=== PATIENT | male | born 1945 | race Caucasian/White ===

== ENCOUNTER 2019-11-30 05:12 | Inpatient (IN) ==
[2019-11-30] MEDS ORDERED: SODIUM CHLORIDE 0.9% 1,000 ML IV STA (05:40)
[2019-11-30] MEDS ORDERED: PANTOPRAZOLE INJ 80 MG in SODIUM CHLORIDE 0.9% 100 ML IV ONE (05:40)
[2019-11-30] MEDS ORDERED: PANTOPRAZOLE 40 MG VIAL IV ONE (05:48)
[2019-11-30 05:59] LABS: Basophils % 0.3 % (0.0-0.8); Eosinophils # 0.2 10*3/uL (0.0-0.87); Eosinophils % 5.8 % (0.00-10.9); Hematocrit 27.4 VOL% (42.0-52.0); Hemoglobin 8.6 GM/DL (14.0-18.0); Immature Granulocytes % 0.8 %; Immature Granulocytes Absolute 0.03 #; Lymphocytes # 0.7 10*3/uL (1.4-4.0); Lymphocytes % 18.1 % (21.2-54.2); Mean Corpuscular HGB Conc 31.4 GM/DL (32-36); Mean Corpuscular Volume 104.6 FL (87-102); Mean Platelet Volume 10.7 FL (9.6-12.0); Monocytes % 7.9 % (1.7-12.7); Neutrophils % 67.1 % (38.7-73.9); Red Blood Count 2.62 MC/CUMM (3.8-5.5); Red Cell Distribution Width 16.3 % (9.3-17.3); White Blood Count 3.7 T/CUMM (4-12)
[2019-11-30 06:02] LABS: Platelet Count 94 T/CUMM (130-400)
[2019-11-30 06:20] LABS: Alanine Aminotransferase 22 U/L (16-61); Albumin 1.7 G/DL (3.4-5.0); Alkaline Phosphatase 56 U/L (45-117); Aspartate Amino Transferase 14 U/L (0-37); Bilirubin,Total < 0.39 MG/DL (0.2-1.0); Blood Urea Nitrogen 32 MG/DL (7-18); Calcium 7.7 MG/DL (8.5-10.1); Estimated Glom Filtration Rate 51 ML/MIN; Glucose 114 MG/DL (74-106); Total Protein 5.1 G/DL (6.4-8.3)
[2019-11-30] MEDS ORDERED: ONDANSETRON 4 MG/2 ML VIAL IV PRN (06:20)
[2019-11-30] MEDS ORDERED: GLUCAGON 1 MG VIAL IM PRN (06:20)
[2019-11-30] MEDS ORDERED: DEXTROSE 50% 25 GM/50 ML VIAL IV PRN (06:20)
[2019-11-30] MEDS ORDERED: SODIUM CHLORIDE 0.9% 1,000 ML IV PRN (06:23)
[2019-11-30 06:32] LABS: Atypical Lymphocytes Few; Band Neutrophils 15 % (0-10); Eosinophils 4 % (0-10); Lymphocytes 15 % (20-55); Metamyelocytes 1 %; Platelet Estimate Decreased; Polychromasia Few; Reactive Lymphocytes Few; Segmented Neutrophils 60 % (50-85)
[2019-11-30 06:33] LABS: Hypochromasia 1+; Ovalocytes 1+; Total Cells Counted 100
[2019-11-30] MEDS ORDERED: MAGNESIUM SULF RIDER 4 GM in PREMIX 1 EACH IV PRN (08:48)
[2019-11-30] MEDS ORDERED: POTASSIUM CHLORIDE RIDER 10 MEQ in PREMIX 1 EACH IV PRN (08:48)
[2019-11-30] MEDS ORDERED: PANTOPRAZOLE 40 MG VIAL IV SCH (09:00)
[2019-11-30] MEDS ORDERED: metroNIDAZOLE 500 MG TABLET PO SCH (09:00)
[2019-11-30] MEDS ORDERED: metroNIDAZOLE 500 MG/100 ML PREMIX IV ONE (09:28)
[2019-11-30] MEDS: metroNIDAZOLE INJ 500 MG in PREMIX 1 EACH IV SCH ×2 (09:40→18:41)
[2019-11-30] MEDS: SODIUM CHLORIDE 0.9% 1,000 ML IV SCH ×3 (09:44→22:40)
[2019-11-30 16:02] LABS: Hematocrit 26.5 VOL% (42.0-52.0); Hemoglobin 8.3 GM/DL (14.0-18.0)
[2019-11-30] MEDS: PANTOPRAZOLE INJ 200 MG in SODIUM CHLORIDE 0.9% 250 ML IV SCH (16:46)
[2019-11-30 16:57] LABS: INR 1.1; PT Patient Result 12.1 SECS (9.8-11.9); Partial Thromboplastin Time 35.3 SECS (23.9-33.8)
[2019-11-30] MEDS: MENTHOL/ZINC OXIDE OINT 71 GM JAR TOP SCH ×2 (18:41→21:23)
[2019-11-30] MEDS ORDERED: ACETAMINOPHEN 325 MG TABLET PO PRN (20:08)
[2019-12-01] MEDS: metroNIDAZOLE INJ 500 MG in PREMIX 1 EACH IV SCH ×3 (00:22→17:53)
[2019-12-01 03:50] LABS: Eosinophils # 0.3 10*3/uL (0.0-0.87); Eosinophils % 8.3 % (0.00-10.9); Hematocrit 22.2 VOL% (42.0-52.0); Immature Granulocytes % 0.6 %; Immature Granulocytes Absolute 0.02 #; Lymphocytes # 0.8 10*3/uL (1.4-4.0); Lymphocytes % 24.6 % (21.2-54.2); Mean Corpuscular HGB Conc 31.5 GM/DL (32-36); Mean Corpuscular Volume 102.8 FL (87-102); Mean Platelet Volume 10.6 FL (9.6-12.0); Monocytes % 8.6 % (1.7-12.7); NRBC # 0.02 10*3/uL; Neutrophils % 57.9 % (38.7-73.9); Platelet Count 84 T/CUMM (130-400); Red Blood Count 2.16 MC/CUMM (3.8-5.5); Red Cell Distribution Width 16.4 % (9.3-17.3); White Blood Count 3.1 T/CUMM (4-12)
[2019-12-01 03:55] LABS: Calcium 7.4 MG/DL (8.5-10.1); Osmolality,Calculated 287.1 MOS/KG (273-304)
[2019-12-01 04:20] LABS: Band Neutrophils 3 % (0-10); Eosinophils 7 % (0-10); Lymphocytes 22 % (20-55); Platelet Estimate Decreased; Segmented Neutrophils 61 % (50-85); Total Cells Counted 100
[2019-12-01 04:21] LABS: Atypical Lymphocytes Few; Hypochromasia 1+
[2019-12-01] MEDS: SODIUM CHLORIDE 0.9% 1,000 ML IV SCH ×2 (09:14→17:11)
[2019-12-01] MEDS ORDERED: SODIUM CHLORIDE 0.9% 1,000 ML IV PRN (15:17)
[2019-12-01] MEDS: SODIUM CHLORIDE 0.65% NASAL SPRAY 45 ML BOTTLE BOTH NARES SCH ×3 (15:17→22:11)
[2019-12-01] MEDS: MENTHOL/ZINC OXIDE OINT 71 GM JAR TOP SCH ×4 (15:17→22:11)
[2019-12-01] MEDS: ZALEPLON 5 MG CAPSULE PO PRN (22:10)
[2019-12-02] MEDS: metroNIDAZOLE INJ 500 MG in PREMIX 1 EACH IV SCH ×3 (02:09→18:37)
[2019-12-02] MEDS: SODIUM CHLORIDE 0.9% 1,000 ML IV SCH ×3 (03:00→15:35)
[2019-12-02 06:35] LABS: Basophils % 0.3 % (0.0-0.8); Eosinophils # 0.4 10*3/uL (0.0-0.87); Hemoglobin 7.1 GM/DL (14.0-18.0); Immature Granulocytes % 2.6 %; Immature Granulocytes Absolute 0.09 #; Lymphocytes # 0.9 10*3/uL (1.4-4.0); Lymphocytes % 26.6 % (21.2-54.2); Mean Corpuscular HGB Conc 32.3 GM/DL (32-36); Mean Corpuscular Volume 98.7 FL (87-102); Mean Platelet Volume 10.4 FL (9.6-12.0); Monocytes % 9.2 % (1.7-12.7); NRBC # 0.02 10*3/uL; Neutrophils % 51.3 % (38.7-73.9); Red Blood Count 2.23 MC/CUMM (3.8-5.5); Red Cell Distribution Width 17.6 % (9.3-17.3); White Blood Count 3.5 T/CUMM (4-12)
[2019-12-02 06:40] LABS: Platelet Count 92 T/CUMM (130-400)
[2019-12-02 06:58] LABS: Calcium 7.2 MG/DL (8.5-10.1); Osmolality,Calculated 288.3 MOS/KG (273-304)
[2019-12-02 07:02] LABS: Band Neutrophils 4 % (0-10); Eosinophils 6 % (0-10); Hypochromasia 1+; Lymphocytes 20 % (20-55); Myelocytes 1 %; Nucleated Red Blood Cells 1 (0-5); Platelet Estimate Decreased; Segmented Neutrophils 59 % (50-85); Total Cells Counted 100
[2019-12-02 07:03] LABS: Atypical Lymphocytes Few
[2019-12-02] MEDS ORDERED: LACTATED RINGERS 1,000 ML IV SCH (08:00)
[2019-12-02] MEDS ORDERED: LIDOCAINE 2% 5 ML VIAL ONE (09:00)
[2019-12-02] MEDS ORDERED: ETOMIDATE 20 MG/10 ML VIAL IV ONE (09:00)
[2019-12-02] MEDS ORDERED: propofoL 200 MG/20 ML VIAL IV ONE (09:00)
[2019-12-02] MEDS ORDERED: ALBUTEROL/IPRATROPIUM 3 ML NEB RESP TX ONE (09:36)
[2019-12-02] MEDS: SODIUM CHLORIDE 0.65% NASAL SPRAY 45 ML BOTTLE BOTH NARES SCH ×4 (10:40→21:10)
[2019-12-02] MEDS: MENTHOL/ZINC OXIDE OINT 71 GM JAR TOP SCH ×4 (10:40→21:10)
[2019-12-02] MEDS: PANTOPRAZOLE INJ 200 MG in SODIUM CHLORIDE 0.9% 250 ML IV SCH (10:52)
[2019-12-02] MEDS: PANTOPRAZOLE 40 MG VIAL IV SCH (11:40)
[2019-12-02 13:07] LABS: Apearance,Urine CLEAR (Clear); Bilirubin,Urine Negative (Negative); Blood, Urine Negative (Negative); Glucose,Urine (UA) Negative (Negative); Ketones,Urine Negative (Negative); Mucus,Urine Occasional /LPF (Occasional); Nitrite,Urine Negative (Negative); Protein,Urine Negative; RBC,Urine 1 /HPF (0-4); Urine Color Yellow (Yellow); Urine Specific Gravity 1.018 (1.001-1.035); Urine Urobilinogen < 2.0 EU/DL (0.2-1.0); WBC,Urine 1 /HPF (0-6)
[2019-12-02] MEDS: MAGNESIUM SULF RIDER 2 GM in PREMIX 1 EACH IV PRN (15:35)
[2019-12-02] MEDS: ZALEPLON 5 MG CAPSULE PO PRN (20:36)
[2019-12-03] MEDS: metroNIDAZOLE INJ 500 MG in PREMIX 1 EACH IV SCH (01:54)
[2019-12-03 05:13] LABS: Basophils % 0.3 % (0.0-0.8); Eosinophils # 0.4 10*3/uL (0.0-0.87); Hematocrit 21.9 VOL% (42.0-52.0); Hemoglobin 6.7 GM/DL (14.0-18.0); Immature Granulocytes % 4.4 %; Immature Granulocytes Absolute 0.15 #; Lymphocytes # 0.9 10*3/uL (1.4-4.0); Lymphocytes % 26.3 % (21.2-54.2); Mean Corpuscular HGB Conc 30.6 GM/DL (32-36); Mean Corpuscular Volume 102.3 FL (87-102); Mean Platelet Volume 10.8 FL (9.6-12.0); Monocytes % 11.4 % (1.7-12.7); NRBC # 0.03 10*3/uL; Neutrophils % 45.6 % (38.7-73.9); Red Blood Count 2.14 MC/CUMM (3.8-5.5); Red Cell Distribution Width 17.2 % (9.3-17.3); White Blood Count 3.4 T/CUMM (4-12)
[2019-12-03 05:15] LABS: Platelet Count 103 T/CUMM (130-400)
[2019-12-03 05:23] LABS: Calcium 7.3 MG/DL (8.5-10.1); Osmolality,Calculated 293.6 MOS/KG (273-304)
[2019-12-03 06:39] LABS: Band Neutrophils 2 % (0-10); Eosinophils 13 % (0-10); Lymphocytes 22 % (20-55); Platelet Estimate Decreased; Segmented Neutrophils 56 % (50-85); Total Cells Counted 100
[2019-12-03 06:40] LABS: Atypical Lymphocytes Few; Hypochromasia 2+; Ovalocytes Slight
[2019-12-03] MEDS ORDERED: SODIUM CHLORIDE 0.9% 1,000 ML IV PRN (08:21)
[2019-12-03] MEDS: PANTOPRAZOLE 40 MG VIAL IV SCH (10:03)
[2019-12-03] MEDS: SODIUM CHLORIDE 0.65% NASAL SPRAY 45 ML BOTTLE BOTH NARES SCH ×4 (10:04→21:04)
[2019-12-03] MEDS: MENTHOL/ZINC OXIDE OINT 71 GM JAR TOP SCH ×4 (10:06→21:04)
[2019-12-03] MEDS: SODIUM CHLORIDE 0.9% 1,000 ML IV SCH ×3 (13:13→15:51)
[2019-12-03 17:14] LABS: Hematocrit 26.5 VOL% (42.0-52.0)
[2019-12-03 17:21] LABS: Hemoglobin 8.6 GM/DL (14.0-18.0)
[2019-12-03] MEDS: ZALEPLON 5 MG CAPSULE PO PRN (21:04)
[2019-12-04] MEDS: SODIUM CHLORIDE 0.9% 1,000 ML IV SCH ×2 (01:28→08:24)
[2019-12-04 06:25] LABS: Basophils % 0.8 % (0.0-0.8); Eosinophils # 0.4 10*3/uL (0.0-0.87); Eosinophils % 10.6 % (0.00-10.9); Hematocrit 26.3 VOL% (42.0-52.0); Hemoglobin 8.4 GM/DL (14.0-18.0); Immature Granulocytes % 4.5 %; Immature Granulocytes Absolute 0.18 #; Lymphocytes # 1.1 10*3/uL (1.4-4.0); Lymphocytes % 26.4 % (21.2-54.2); Mean Corpuscular HGB Conc 31.9 GM/DL (32-36); Mean Corpuscular Volume 95.3 FL (87-102); Mean Platelet Volume 10.9 FL (9.6-12.0); Monocytes % 11.8 % (1.7-12.7); NRBC # 0.04 10*3/uL; Neutrophils % 45.9 % (38.7-73.9); Red Blood Count 2.76 MC/CUMM (3.8-5.5); Red Cell Distribution Width 18.6 % (9.3-17.3)
[2019-12-04 06:31] LABS: Platelet Count 91 T/CUMM (130-400)
[2019-12-04 06:46] LABS: Calcium 7.2 MG/DL (8.5-10.1); Osmolality,Calculated 289.7 MOS/KG (273-304)
[2019-12-04 07:05] LABS: Band Neutrophils 12 % (0-10); Eosinophils 9 % (0-10); Lymphocytes 22 % (20-55); Myelocytes 1 %; Segmented Neutrophils 46 % (50-85); Total Cells Counted 100
[2019-12-04 07:06] LABS: Anisocytosis 1+; Basophilic Stippling Slight; Platelet Estimate Decreased; Poikilocytosis Slight; Polychromasia Slight
[2019-12-04 07:07] LABS: Macrocytosis Slight
[2019-12-04] MEDS: MAGNESIUM SULF RIDER 2 GM in PREMIX 1 EACH IV PRN (08:20)
[2019-12-04] MEDS: PANTOPRAZOLE 40 MG VIAL IV SCH (08:20)
[2019-12-04] MEDS: SODIUM CHLORIDE 0.65% NASAL SPRAY 45 ML BOTTLE BOTH NARES SCH (08:21)
[2019-12-04] MEDS: MENTHOL/ZINC OXIDE OINT 71 GM JAR TOP SCH (08:22)
[2019-12-04 09:52] VITALS: BP 101/65
== END 2019-12-04 10:58 | disposition home health service (06) | DRG 377 ==
LOC: EDBD → EDUNIT# → N.ED 05:12 → SUATTDRO 06:20 → N.EDINP 06:20 → N.3E 15:16 → N.4E 15:46
PROVIDERS: ADMIT Internal Medicine; ATTEND Family Medicine